=== PATIENT | female | born 1940 | race Caucasian/White ===

== ENCOUNTER 2016-08-31 02:54 | Emergency (ER) | payer MEDICARE, OTHER ==
[2016-08-31] MEDS ORDERED: ASPIRIN 81 MG CHEW TAB ONE (03:47)
== END 2016-08-31 06:20 | disposition home or self-care (01) ==
LOC: ER 02:54
DX: I10 Essential (primary) hypertension (principal); Z79.82 Long term (current) use of aspirin; Z79.899 Other long term (current) drug therapy
CPT/HCPCS: 36415; 71010; 80053; 82550; 83735; 84484; 85025; 85610; 85730; 93005